=== PATIENT | female | born 1960 | race African-American/Black ===

== ENCOUNTER 2016-12-09 18:33 | Observation (INO) | payer SELFPAY ==
[~2016-12-09] VITALS: Ht 162.6 cm; Wt 80.0 kg
[2016-12-09] VITALS (8 sets, daily range): BP systolic 154–217; BP diastolic 81–134; PULSE 64–78; RESP 16–18; TEMP 98.6; O2SAT 97–100
[~2016-12-09 18:33] MED LIST: ASPI81 PO; CARV12.5 PO; GLIM2 PO; GLUCOMETER XX; GLUCOMTESTSTRIPS XX; LISI20 PO; PRAS10 PO; PRAV80 PO; Z.0.LANCETS XX
[2016-12-09] MEDS ORDERED: ASPI81CH CHEW (18:53)
[2016-12-09] MEDS ORDERED: GLIM2TAB PO (18:53)
[2016-12-09] MEDS ORDERED: METF1000 PO (18:53)
[2016-12-09] MEDS ORDERED: LOVA10TA PO (18:53)
[2016-12-09] MEDS ORDERED: CARV25TA PO (18:53)
[2016-12-09] MEDS ORDERED: NITROGLYCERIN 2% OINT 1 GM PACKET TOP ONE (19:00)
[2016-12-09] MEDS ORDERED: MORPHINE SULFATE 4 MG/ML INJ IV PUSH ONE (19:00)
[2016-12-09] MEDS ORDERED: NITROGLYCERIN 0.4 MG SL 25 TABS/BTL SL ONE (19:00)
[2016-12-09] MEDS ORDERED: SODIUM CHLORIDE 0.9% FLUSH 5 ML FLUSH IVF PRN ×2 (19:00→20:30)
[2016-12-09] MEDS ORDERED: ONDANSETRON HCL 4 MG/2 ML VIAL IV PUSH ONE (19:00)
[2016-12-09] MEDS ORDERED: ASPIRIN 81 MG CHEW TAB PO ONE (19:00)
[2016-12-09] MEDS ORDERED: LABETALOL HCL 100 MG/20 ML VIAL IV PUSH ONE (19:00)
--- NOTE | 2016-12-09 19:10 | PD ---
HPI Chief Complaint: Chest Pain Time Seen by Provider: 18:47 Travel History International Travel<30 days: No Contact w/Intl Traveler<30days: No Traveled to known affect area: No History of Present Illness HPI The patient is a 56-year-old [place] female who presents emergency department for chest "discomfort "which shortness of breath. The patient states over the last several days she's had increasing chest discomfort that she describes as a "knot", that is substernal. She also complains of exertional shortness of breath and chest discomfort with walking and running that is alleviated at rest. She does note mild shortness of breath, worse with exertion, but denies any nausea, vomiting, or diaphoresis. The patient does have a history of coronary artery disease and recently had stents placed by Dr. Matos in September 2015. The patient states she was taken off of Plavix, but currently takes a baby aspirin every day. She denies any headache, nausea, vomiting, diaphoresis, or swelling of the lower extremities. Patient's park keeper is Dr. Matos. [facility] Past Medical History Hypertension: Yes Social History Alcohol Use: No Tobacco Use: No Substance Use: No Allergies-Medications (Allergen,Severity, Reaction): Coded Allergies: No Known Allergies (Unverified , 10/06/15) Reported Meds & Prescriptions Reported Meds & Active Scripts Active Reported Carvedilol 25 Mg Tab 25 Mg PO BID Metformin (Metformin HCl) 1,000 Mg Tab 1,000 Mg PO BIDPC With meals Lovastatin 10 Mg Tab 10 Mg PO DAILY Glimepiride 2 Mg Tab 2 Mg PO DAILY Take with breakfast or first main meal Aspirin 81 Mg Chew 81 Mg CHEW DAILY Review of Systems Except as stated in HPI: all other systems reviewed are Neg HENT: No: Lightheadedness Cardiovascular: Positive: Chest Pain or Discomfort, Dyspnea on exertion, No: Diaphoresis Respiratory: Positive: Shortness of Breath Gastrointestinal: No: Nausea, Vomiting, Abdominal Pain Musculoskeletal: No: Weakness Neurologic: No: Weakness, Dizziness Physical Exam Narrative GENERAL: Awake, alert, pleasant 56-year-old female who appears her stated age and is in no acute respiratory distress. SKIN: Warm and dry. HEAD: Atraumatic. Normocephalic. EYES: No injection or pallor. ENT: No nasal bleeding or discharge. Mucous membranes pink and moist. NECK: Trachea midline. No JVD. CARDIOVASCULAR: Regular rate and rhythm. No murmur appreciated. RESPIRATORY: No accessory muscle use. Clear to auscultation. Breath sounds equal bilaterally. GASTROINTESTINAL: Abdomen soft, non-tender, nondistended. No rebound tenderness. MUSCULOSKELETAL: No obvious deformities. No clubbing. No cyanosis. No edema. NEUROLOGICAL: Awake and alert. No obvious cranial nerve deficits. Motor grossly within normal limits. Normal speech. PSYCHIATRIC: Appropriate mood and affect; insight and judgment normal. Data Data Last Documented VS Vital Signs Date Time Temp Pulse Resp B/P Pulse Ox O2 Delivery O2 Flow Rate FiO2 12/09/16 19:51 64 16 163/99 97 Room Air 12/09/16 18:35 98.6 Orders Electrocardiogram (12/09/16 ) B-Type Natriuretic Peptide (12/09/16 18:58) Ckmb (Isoenzyme) Profile (12/09/16 18:58) Complete Blood Count With Diff (12/09/16 18:58) Comprehensive Metabolic Panel (12/09/16 18:58) Magnesium (Mg) (12/09/16 18:58) Prothrombin Time / Inr (Pt) (12/09/16 18:58) Act Partial Throm Time (Ptt) (12/09/16 18:58) Troponin I (12/09/16 18:58) Chest, Single Ap (12/09/16 18:58) Ecg Monitoring (12/09/16 18:58) Bilateral Bp Monitoring (12/09/16 18:58) Iv Access Insert/Monitor (12/09/16 18:58) Oximetry (12/09/16 18:58) Oxygen Administration (12/09/16 18:58) Aspirin Chew (Aspirin Chew) (12/09/16 19:00) Morphine Inj (Morphine Inj) (12/09/16 19:00) Nitroglycerin 2% Oint (Nitroglycerin 2% (12/09/16 19:00) Sodium Chloride 0.9% Flush (Ns Flush) (12/09/16 19:00) Nitroglycerin Sl (Nitrostat Sl) (12/09/16 19:00) Ondansetron Inj (Zofran Inj) (12/09/16 19:00) Labetalol Inj (Trandate Inj) (12/09/16 19:00) CKMB (12/09/16 19:00) CKMB% (12/09/16 19:00) Labs Laboratory Tests Test 12/09/16 19:00 White Blood Count 9.3 TH/MM3 Red Blood Count 4.14 MIL/MM3 Hemoglobin 12.3 GM/DL Hematocrit 36.3 % Mean Corpuscular Volume 87.7 FL Mean Corpuscular Hemoglobin 29.8 PG Mean Corpuscular Hemoglobin 34.0 % Concent Red Cell Distribution Width 12.8 % Platelet Count 208 TH/MM3 Mean Platelet Volume 9.4 FL Neutrophils (%) (Auto) 58.7 % Lymphocytes (%) (Auto) 29.7 % Monocytes (%) (Auto) 8.2 % Eosinophils (%) (Auto) 2.5 % Basophils (%) (Auto) 0.9 % Neutrophils # (Auto) 5.5 TH/MM3 Lymphocytes # (Auto) 2.8 TH/MM3 Monocytes # (Auto) 0.8 TH/MM3 Eosinophils # (Auto) 0.2 TH/MM3 Basophils # (Auto) 0.1 TH/MM3 CBC Comment DIFF FINAL Differential Comment Prothrombin Time 11.9 SEC Prothromb Time International 1.1 RATIO Ratio Activated Partial 24.1 SEC Thromboplast Time Sodium Level 138 MEQ/L Potassium Level 3.6 MEQ/L Chloride Level 103 MEQ/L Carbon Dioxide Level 27.5 MEQ/L Anion Gap 8 MEQ/L Blood Urea Nitrogen 18 MG/DL Creatinine 0.76 MG/DL Estimat Glomerular Filtration 95 ML/MIN Rate Random Glucose 98 MG/DL Calcium Level 8.7 MG/DL Magnesium Level 1.8 MG/DL Total Bilirubin 0.4 MG/DL Aspartate Amino Transf 13 U/L (AST/SGOT) Alanine Aminotransferase 26 U/L (ALT/SGPT) Alkaline Phosphatase 67 U/L Total Creatine Kinase 141 U/L Creatine Kinase MB 0.8 NG/ML Troponin I LESS THAN 0.02 NG/ML Total Protein 7.5 GM/DL Albumin 3.9 GM/DL [facility] Medical Decision Making Medical Screen Exam Complete: Yes Emergency Medical Condition: Yes Medical Record Reviewed: Yes Interpretation(s) EKG reveals inverted T waves in lead 1, 2, 3, aVF, V3, V4, V5, and V6. No significant changes when compared to EKG performed on October 07, 2015. Sinus rhythm with a rate of 69. Last Impressions Chest X-Ray 12/09/16 8077 Signed Impressions: Service Date/Time: November 19:13 - CONCLUSION: No acute disease. Alex Olsen MD FACR Laboratory Tests Test 12/09/16 19:00 White Blood Count 9.3 TH/MM3 Red Blood Count 4.14 MIL/MM3 Hemoglobin 12.3 GM/DL Hematocrit 36.3 % Mean Corpuscular Volume 87.7 FL Mean Corpuscular Hemoglobin 29.8 PG Mean Corpuscular Hemoglobin 34.0 % Concent Red Cell Distribution Width 12.8 % Platelet Count 208 TH/MM3 Mean Platelet Volume 9.4 FL Neutrophils (%) (Auto) 58.7 % Lymphocytes (%) (Auto) 29.7 % Monocytes (%) (Auto) 8.2 % Eosinophils (%) (Auto) 2.5 % Basophils (%) (Auto) 0.9 % Neutrophils # (Auto) 5.5 TH/MM3 Lymphocytes # (Auto) 2.8 TH/MM3 Monocytes # (Auto) 0.8 TH/MM3 Eosinophils # (Auto) 0.2 TH/MM3 Basophils # (Auto) 0.1 TH/MM3 CBC Comment DIFF FINAL Differential Comment Prothrombin Time 11.9 SEC Prothromb Time International 1.1 RATIO Ratio Activated Partial 24.1 SEC Thromboplast Time Sodium Level 138 MEQ/L Potassium Level 3.6 MEQ/L Chloride Level 103 MEQ/L Carbon Dioxide Level 27.5 MEQ/L Anion Gap 8 MEQ/L Blood Urea Nitrogen 18 MG/DL Creatinine 0.76 MG/DL Estimat Glomerular Filtration 95 ML/MIN Rate Random Glucose 98 MG/DL Calcium Level 8.7 MG/DL Magnesium Level 1.8 MG/DL Total Bilirubin 0.4 MG/DL Aspartate Amino Transf 13 U/L (AST/SGOT) Alanine Aminotransferase 26 U/L (ALT/SGPT) Alkaline Phosphatase 67 U/L Total Creatine Kinase 141 U/L Creatine Kinase MB 0.8 NG/ML Troponin I LESS THAN 0.02 NG/ML Total Protein 7.5 GM/DL Albumin 3.9 GM/DL Differential Diagnosis Differential diagnoses includes acute coronary syndrome, cardiomyopathy, STEMI, pulmonary embolism, deconditioning, GERD, esophageal spasm, pleural effusion, pericardial effusion. Narrative Course IV was established, labs are drawn and sent, and the patient was placed on cardiac telemetry monitoring and continuous pulse oximetry monitoring. EKG was ordered and interpreted. Chest x-ray was ordered. The patient was administered aspirin, labetalol, nitroglycerin, nitro paste, morphine, and Zofran. The patient's blood pressure improved with medications, came down to 160s/90s. Troponin was negative. The patient's chest pain resolved. I discussed the patient with the on-call park keeper for Dr. Nathan Solano, and after discussion he stated to place the patient in the chest pain Center. No Lovenox/Or per Dr. Evans. Therefore, patient will be 23 hour observation to the chest pain Center. Physician Communication Physician Communication I discussed the patient with the on-call physician for Dr. Matos, Dr. Evans, who states to place the patient in the chest pain Center. Diagnosis Primary Impression: Chest pain Qualified Code: R07.9 - Chest pain, unspecified type Additional Impression: Hypertension Qualified Code: I10 - Essential hypertension Admitting Information Admitting Physician Requests: Observation Condition: Stable Alok Vick MD Dec 09, 2016 19:10
[2016-12-09 19:17] LABS: AUTOMATED NEUTROPHIL # 5.5 TH/MM3 (1.8-7.7); BASOPHIL # 0.1 TH/MM3 (0-0.2); BASOPHIL % 0.9 % (0.0-2.0); EOSINOPHIL # 0.2 TH/MM3 (0-0.4); EOSINOPHIL % 2.5 % (0.0-4.0); HEMATOCRIT 36.3 % (35.0-46.0); HEMO FLAGS DIFF FINAL; LYMPH % 29.7 % (9.0-44.0); LYMPHOCYTE # 2.8 TH/MM3 (1.0-4.8); MEAN CELL VOLUME 87.7 FL (80.0-100.0); MEAN CORPUSCULAR HEMOGLOBIN 29.8 PG (27.0-34.0); MONO % 8.2 % (0.0-8.0); NEUT % 58.7 % (16.0-70.0); PLATELET COUNT 208 TH/MM3 (150-450); RED BLOOD COUNT 4.14 MIL/MM3 (4.00-5.30); RED CELL DISTRIBUTION WIDTH 12.8 % (11.6-17.2); WHITE BLOOD COUNT 9.3 TH/MM3 (4.0-11.0)
[2016-12-09 19:33] LABS: APTT (PATIENT) 24.1 SEC (24.3-30.1); INTERNATIONAL NORMALIZED RATIO 1.1 RATIO; PROTHROMBIN TIME - PATIENT 11.9 SEC (9.8-11.6)
[2016-12-09 19:38] LABS: ANION GAP 8 MEQ/L (5-15); AST (GOT) 13 U/L (15-37); BICARBONATE 27.5 MEQ/L (21.0-32.0); BLOOD UREA NITROGEN 18 MG/DL (7-18); CHLORIDE 103 MEQ/L (98-107); GLOMERULAR FILTRATION RATE 95 ML/MIN (>89); MAGNESIUM 1.8 MG/DL (1.5-2.5); POTASSIUM 3.6 MEQ/L (3.5-5.1); SODIUM (NA) 138 MEQ/L (136-145)
[2016-12-09 19:43] LABS: ALKALINE PHOSPHATASE 67 U/L (45-117); ALT (GPT) 26 U/L (10-53); CREATINE KINASE 141 U/L (26-192); TOTAL BILIRUBIN ADULT 0.4 MG/DL (0.2-1.0)
--- NOTE | 2016-12-09 19:48 | RADRPT ---
EXAM DATE/TIME: 12/09/2016 19:13 [facility] COMPARISON: CHEST SINGLE AP, October 06, 2015, 15:26. INDICATIONS : Chest pain. MEDICAL HISTORY : None. SURGICAL HISTORY : Stent placement ENCOUNTER: Initial ACUITY: 2 days PAIN SCORE: 3/10 LOCATION: Bilateral chest FINDINGS: A single view of the chest demonstrates the lungs to be symmetrically aerated without evidence of mas s, infiltrate or effusion. The cardiomediastinal contours are unremarkable. Osseous structures are intact. CONCLUSION: No acute disease. Alex Olsen MD FACR on December 09, 2016 at 19:46 Board Certified Radiologist. This report was verified electronically.
[2016-12-09 19:55] LABS: CKMB 0.8 NG/ML (0.5-3.6)
[2016-12-09] MEDS ORDERED: MORPHINE SULFATE 4 MG/ML INJ IV PRN (20:30)
[2016-12-09] MEDS ORDERED: ONDANSETRON HCL 4 MG/2 ML VIAL IV PRN (20:30)
[2016-12-09] MEDS ORDERED: ACETAMINOPHEN/HYDROcodone 325 MG/7.5 MG TAB PO PRN (20:30)
[2016-12-09] MEDS ORDERED: NITROGLYCERIN 0.4 MG SL 25 TABS/BTL SL PRN (20:30)
[2016-12-09] MEDS ORDERED: ACETAMINOPHEN 500 MG CPLT PO PRN (20:30)
[2016-12-09] MEDS: SODIUM CHLORIDE 0.9% FLUSH 5 ML FLUSH IVF SCH (20:57)
[2016-12-09 22:32] LABS: CREATINE KINASE 120 U/L (26-192)
[2016-12-09 22:44] LABS: CKMB 1.3 NG/ML (0.5-3.6)
[2016-12-09] MEDS: NITROGLYCERIN 2% OINT 1 GM PACKET TOP SCH (23:07)
[2016-12-10 01:44] VITALS: BP 189/95; PULSE 66; RESP 21; TEMP 98; O2SAT 94
[2016-12-10 01:45] VITALS: BP 167/78
[2016-12-10 01:47] LABS: CREATINE KINASE 111 U/L (26-192)
[2016-12-10 01:59] LABS: CKMB 0.9 NG/ML (0.5-3.6)
[2016-12-10] MEDS: NITROGLYCERIN 2% OINT 1 GM PACKET TOP SCH ×2 (06:00→12:00)
[2016-12-10 06:36] VITALS: BP 147/78; PULSE 87; RESP 18; TEMP 98.7; O2SAT 97
[2016-12-10 08:00] VITALS: BP 155/97; PULSE 61; RESP 20; TEMP 97.3; O2SAT 98
[2016-12-10 08:15] VITALS: PULSE 74
[2016-12-10] MEDS: SODIUM CHLORIDE 0.9% FLUSH 5 ML FLUSH IVF SCH (08:19)
[2016-12-10] MEDS ORDERED: ASPIRIN 325 MG TAB PO SCH (09:00)
[2016-12-10] MEDS ORDERED: cloNIDine HCL 0.1 MG TAB PO ONE (12:30)
[2016-12-10 12:40] VITALS: BP 149/89; PULSE 65; RESP 20; TEMP 98; O2SAT 98
--- NOTE | 2016-12-10 14:35 | RADRPT ---
EXAM DATE/TIME: 12/10/2016 11:22 [facility] COMPARISON: No previous studies available for comparison. INDICATIONS: Substernal chest pain with dyspnea. Angina Coronary artery disease. DOSE: 26.3 mCi Tc99m Myoview at stress 8.5 mCi Tc99m Myoview at rest REST HEART RATE: 80 BPM TARGET HEART RATE: 138 BPM MAX HEART RATE: 132 BPM REST BLOOD PRESSURE: 178/104 mmHg MAX BLOOD PRESSURE: 192/100 mmHg EJECTION FRACTION: 30% MEDICAL HISTORY: Hypertension. Diabetes mellitus type 2. SURGICAL HISTORY: None. ENCOUNTER: Initial ACUITY: 1 day PAIN SCALE: 6/10 LOCATION: Substernal chest TECHNIQUE: The patient underwent upright treadmill exercise in the chest pain center. Continuous ECG tracing wa s monitored during stress. Gated SPECT imaging was performed after stress, and conventional SPECT im aging was performed at rest. The examination was performed on a SPECT/CT scanner, both attenuation-c orrected and non-corrected datasets were reviewed. FINDINGS: The gated Cine loop images demonstrate severe global hypokinesis. The left ventricular ejection frac tion is calculated at 30%. The cardiac SPECT stress and rest images demonstrate large fixed defect involving the cardiac apex, a nterior wall and septum suggesting LAD infarct. No reversible defect is noted to suggest ischemia. CONCLUSION: 1. Large fixed defect involving the cardiac apex, anterior wall and septum consistent with large LAD infarct. 2. Severe global hypokinesis with left ventricular ejection fraction equaling 30%. 3. No reversible defect to suggest ischemia. RISK CATEGORY: High risk (greater than 3% annual mortality rate). Dashawn Jalloh MD on December 10, 2016 at 14:00 Board Certified Radiologist. This report was verified electronically.
--- NOTE | 2016-12-10 15:12 | HHI.DCPOC ---
Discharge Care Plan Diagnosis: (1) Atypical chest pain (2) Hypertension (3) Hx of coronary artery disease Goals to Promote Your Health * To prevent worsening of your condition and complications * To maintain your health at the optimal level Directions to Meet Your Goals Take your medications as prescribed Follow your dietary instruction Follow activity as directed Keep your appointments as scheduled Take your immunizations and boosters as scheduled If your symptoms worsen call your PCP, if no PCP go to Urgent Care Center or Emergency Room Smoking is Dangerous to Your Health. Avoid second hand smoke Call the 24-hour hour crisis hotline for domestic abuse at Gwen Colmenares Dec 10, 2016 15:12
[2016-12-10] MEDS ORDERED: GLIM2TAB PO (15:40)
[2016-12-10] MEDS ORDERED: CARV25TA PO (15:40)
[2016-12-10] MEDS ORDERED: CARVEDILOL 12.5 MG TAB PO SCH (21:00)
[2016-12-11] MEDS ORDERED: PRAVASTATIN SOD 10 MG TAB PO SCH (09:00)
--- NOTE | 2016-12-11 16:55 | EKG ---
Date Performed: 12/09/2016 Time Performed: 18:48:58 PTAGE: 56 years EKG: Sinus rhythm POSSIBLE LEFT ATRIAL ENLARGEMENT MARKED LEFT AXIS DEVIATION MARKED ST&T WAVE CHANGES MAY BE DUE TO I SCHEMIA ANTEROSEPTAL MYOCARDIAL INFARCTION ACUTE LA PREVIOUS TRACING : 10/08/2015 04.21 DOCTOR: Eric Grant Interpretating Date/Time 12/11/2016 16:54:34
--- NOTE | 2016-12-11 19:49 | EKG ---
Date Performed: 12/09/2016 Time Performed: 21:49:03 PTAGE: 56 years EKG: Sinus rhythm POSSIBLE LEFT ATRIAL ENLARGEMENT MARKED LEFT AXIS DEVIATION ANTEROLATERAL MYOCARDIAL INFARCTION MODE RATE T-WAVE ABNORMALITY, CONSIDER INFERIOR ISCHEMIA ABNORMAL ECG PREVIOUS TRACING : 12/09/2016 18.48 DOCTOR: Eric Grant Interpretating Date/Time 12/11/2016 19:48:43
--- NOTE | 2016-12-11 19:53 | EKG ---
Date Performed: 12/10/2016 Time Performed: 00:58:32 PTAGE: 56 years EKG: Sinus rhythm WITH OCCASIONAL SUPRAVENTRICULAR PREMATURE COMPLEXES POSSIBLE LEFT ATRIAL ENLARGEMENT MARKED LEFT AX IS DEVIATION ANTEROLATERAL MYOCARDIAL INFARCTION MODERATE T-WAVE ABNORMALITY, CONSIDER INFERIOR ISCHE BRUCE ABNORMAL ECG PREVIOUS TRACING : 12/09/2016 21.49 DOCTOR: Eric Grant Interpretating Date/Time 12/11/2016 19:51:49
--- NOTE | 2016-12-11 23:01 | TR ---
Date Performed: 12/10/2016 Time Performed: 12:18:47 DOCTOR: Eric Grant DRUG LIST: CLINICAL HISTORY: REASON FOR TEST: REASON FOR ENDING: OBSERVATION: CONCLUSION: Vel protocol completed. Stopped sec to reaching target heart rate and leg fatigue. Maximum NZ=511 % Target HR Achieved=82.0% Total Exercise Time=4:34 Max bp 192/100. No reprod chest d iscomfort/sob. Fair exercise tolerance. Blood pressure was moderately elevated. Rare PVC. Prior t wa ve changes. Nuclear images pending. COMMENTS: CONCLUSION: ECG portion nuclear exercise stress test is negative for ischemic changes.
--- NOTE | 2016-12-13 08:33 | MH ---
cc: DEL CEDEÑO MD DATE OF ADMISSION: 12/09/2016 DATE OF : 1960 CHIEF COMPLAINT Chest pain. HISTORY OF PRESENT ILLNESS This is a 56-year-old patient who presented to the emergency room for further evaluation of chest pain. She describes the onset of chest pain since Tuesday p.m. and it has been waxing and waning, although yesterday () about 5 p.m. the chest discomfort became quite worse. Location substernal. Described as a tightening knot with no radiation. Duration was a few minutes. Associated symptoms none. No precipitating factors or reliving factors. She has not had chest pain like this in the past in fact she states "I thought if I would be able to swallow more the pain would go away". PAST MEDICAL HISTORY 1. Diabetes. 2. Hypertension. 3. MT. 4. Two cardiac stents. PAST SURGICAL HISTORY None. FAMILY HISTORY Noncontributory for any early onset cardiovascular disease. SOCIAL HISTORY She is a lifelong nonsmoker. Denies any alcohol or illicit drug use. Does have known diabetes, hypertension and is taking a cholesterol medication. She is active. PAST CARDIAC TESTING 10/07/15 she had a cardiac catheterization with Dr. 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 2) Critical coronary artery disease with a total occlusion of the LAD, multiple stenoses of her distal circumflex and dominant RCA with a successful stenting of her distal circumflex with drug-eluting stent. She follows with Dr. Matos every six months and is due to see him January of 2017. Her primary care provider is Dr. Burnett. ALLERGIES SHE HAS NO ALLERGIES TO MEDICATION. CURRENT MEDICATIONS 1. Carvedilol 25 mg b.i.d. 2. Metformin 1000 mg b.i.d. 3. Lovastatin 10 mg daily. 4. Aspirin 81 mg daily. 5. Glimepiride 2 mg daily. She has been taken off of Plavix by Dr. Matos. The patient states this was some time ago and was told to take the Baby Aspirin in replace of the Plavix. REVIEW OF SYSTEMS GENERAL: No recent illness, fatigue, weakness, fevers, recent travel, change in appetite. HEENT: No headache or visual changes or dysphagia. No acid reflux that she is aware of or sour taste in her mouth. CARDIOVASCULAR: No palpitations, intermittent leg pain or dizziness, otherwise as stated above. Denies any current chest pain. RESPIRATORY: No shortness of breath, cough, wheeze or recent upper respiratory infection. ABDOMEN: No nausea, vomiting, bowel changes such as diarrhea, constipation, pain, distention, blood in the stool or dark stool. GENITOURINARY: No dysuria, urgency or frequency or hematuria. EXTREMITIES: No lower leg edema or leg pain. MUSCULOSKELETAL: No change in ROM. No discomfort, warmth, redness or swelling of her joints. NEUROLOGIC: No difficulty with balance, motory or sensory deficits, change in memory or dizziness, loss of consciousness. PSYCHIATRIC: No anxiety or depression. SKIN: No concerning lesions or rashes. PHYSICAL EXAMINATION VITAL SIGNS: Temperature 98, pulse 65, respiratory 20, blood pressure 149/89, 98% on room air. On admission to the hospital she was hypertensive with blood pressure documented at 208/121 and 217/134, blood pressure normalized throughout the evening. GENERAL: She is alert, well-nourished, well-developed, in no acute distress, a pleasant female. HEENT: Head normocephalic, atraumatic. Eyes: Sclerae are clear. Pupils equal and round. Conjunctivae without injection. Mucous membranes are pink and moist. NECK: Supple. Trachea is midline. CARDIOVASCULAR: Regular rate and rhythm without murmur, rub or gallop. No JVD. S1, S2. No S3. No S4. No carotid bruits. RESPIRATORY: Clear lungs throughout bilaterally with no crackles, wheeze or rhonchi. She is nonlabored. ABDOMEN: Soft, nontender, nondistended. No masses. Positive bowel tones. BACK: No CVAT. No scoliosis. EXTREMITIES: Pulses +2 x4. No dependent edema. MUSCULOSKELETAL: Normal tone x4. She is nontender in her chest wall. No obvious deformities. NEUROLOGIC: CN II through XII is grossly intact. Motor strength 5/5. PSYCHIATRIC: She is alert and oriented x3. Has a pleasant affect. Appropriate mood, insight and judgement. SKIN: Normal turgor, normal texture with a brisk cap refill. Skin is warm and dry. LABORATORY DATA CBC is unremarkable. Chemistry is unremarkable. Three sets of cardiac enzymes are negative. Coagulation is unremarkable. IMAGING Chest x-ray read by the radiologist has a conclusion of no acute disease. Three EKGs show a normal sinus rhythm with anterior Q waves and some nonspecific T wave abnormality with a left axis deviation. ASSESSMENT AND PLAN 1. Chest pain: The patient has been admitted to the Chest Pain Center. She was ruled out with three sets of EKGs and cardiac enzymes. She was seen and evaluated by Dr. Del Cedeño. She underwent a chemical stress test which was negative for ischemia with a conclusion of: 1) Large fixed defect involving the cardiac apex, apex wall and septum consistent with a large LAD infarct. 2) Severe global hypokinesis with left ventricular ejection fraction equaling 30%. 3) No reversible defect to suggest ischemia. This has been discussed with the patient. She will be discharged later this evening. She is agreeable to this plan of care. She has been encouraged to followup with Dr. Mtaos at her previously scheduled appointment in January, although has been encouraged if she develops chest pain again to return to the emergency room. 2. Hypertension. Have encouraged her to keep a blood pressure log for the next two weeks and then followup with her primary care provider with those results. 3. GERD. I discussed with the patient [id number] remedies for possible acid reflux and to discuss with primary care provider and the possibility of ordering a prescription strength acid reflux medication if he feels it is warranted. She is agreeable to this plan of care and verbalizes understanding. Dictated by: CAMRON Way MD RUBEN Katz/GARRETT /5:40 PM /8:30 AM
== END 2016-12-10 17:30 | disposition home or self-care (01) ==
LOC: NEPA 18:33 → NEDA 20:29 → NEPGCP 23:35
PROVIDERS: ADMIT Internal Medicine Cardiovascular Disease; ATTEND Internal Medicine Cardiovascular Disease
DX: R07.89 Other chest pain (principal); I10 Essential (primary) hypertension; I25.10 Atherosclerotic heart disease of native coronary artery without angina pectoris; R94.31 Abnormal electrocardiogram [ECG] [EKG]; E11.9 Type 2 diabetes mellitus without complications; K21.9 Gastro-esophageal reflux disease without esophagitis; Z95.5 Presence of coronary angioplasty implant and graft
CPT/HCPCS: 71010; 78452; 80053; 82550; 82552; 82948; 83735; 83880; 84484; 85025; 85610; 85730; 93005; 93017; 96374; 96375; 99285; A9502; G0378; J2270; J2405